=== PATIENT | female | born 1960 | race Caucasian/White ===

== ENCOUNTER 2024-06-13 17:22 | Inpatient (IN) | payer MEDICARE, BC ==
[~2024-06-13] VITALS: Ht 167.6 cm; Wt 97.2 kg
[2024-06-13 18:14] LABS: MONOCYTES # (AUTO) 0.6 X10'3 (0-0.9); PLATELET COUNT 292 X10'3 (140-440)
[2024-06-13 18:16] LABS: BASOPHILS # (AUTO) 0.1 X10'3 (0-0.2); BASOPHILS % (AUTO) 0.9 % (0-1); EOSINOPHILS # (AUTO) 0.1 X10'3 (0-0.9); EOSINOPHILS % (AUTO) 0.5 % (0-6); HEMATOCRIT 38.6 % (35.0-45.0); HEMOGLOBIN 12.6 g/dl (12.0-16.0); LYMPHOCYTES # (AUTO) 1.9 X10'3 (1.1-4.8); LYMPHOCYTES % (AUTO) 17.1 % (21-51); MEAN CORPUSCULAR HEMOGLOBIN 28.2 PG (27.0-31.0); MEAN CORPUSCULAR HGB CONC 32.5 g/dL (33.0-36.5); MEAN CORPUSCULAR VOLUME 86.8 FL (78-98); MEAN PLATELET VOLUME 8.9 FL (7.4-10.4); MONOCYTES % (AUTO) 5.4 % (2-12); NEUTROPHILS # (AUTO) 8.7 X10'3 (1.8-7.7); NEUTROPHILS % (AUTO) 76.1 % (42-75); RED BLOOD COUNT 4.45 X10'6 (4.20-5.60); RED CELL DISTRIBUTION WIDTH 17.4 % (11.5-14.5); WHITE BLOOD COUNT 11.4 X10'3 (4.5-11.0)
[2024-06-13 18:36] LABS: GLUCOSE 100 MG/DL (70-104)
[2024-06-13 18:37] LABS: ALBUMIN 2.6 G/DL (3.4-5.0); ANION GAP 9 (8-16); BLOOD UREA NITROGEN 10 MG/DL (7-18); BUN/CREATININE RATIO 10.9 (10.0-20.0); CALCIUM 8.9 MG/DL (8.5-10.1); CHLORIDE 106 MMOL/L (99-107); CREATININE 0.92 MG/DL (0.40-0.90); POTASSIUM 3.5 MMOL/L (3.5-5.1); PRO BRAIN NATRIURETIC PEPTIDE 11100 PG/ML (0-125); SODIUM 146 MMOL/L (135-145); TOTAL CARBON DIOXIDE 31.1 MMOL/L (24-32); eCRCL 56 ML/MIN; eGFR 61 ML/MIN
[2024-06-13 19:35] LABS: D-DIMER 3.51 MG/L FEU (0-0.50)
[2024-06-13] MEDS: furosemide 10 MG/1 ML 10ml inj IV ONE (20:04)
[2024-06-13] MEDS ORDERED: mag hydrox/Alum hydrox/simeth 30ml oral suspension PO PRN (20:15)
[2024-06-13] MEDS ORDERED: ondansetron/PF 4mg/2ml inj IV PRN (20:15)
[2024-06-13] MEDS ORDERED: magnesium sulf-water 4G/100mL 100 ML IV PRN (20:15)
[2024-06-13] MEDS ORDERED: magnesium sulf-water 2g/50mL 50 ML IV PRN (20:15)
[2024-06-13] MEDS ORDERED: acetaminophen 325mg tablet PO PRN ×2 (20:15)
[2024-06-13] MEDS ORDERED: magnesium Cl slow-release 64mg tablet PO PRN (20:15)
[2024-06-13] MEDS ORDERED: potassium Cl 40MEQ/1/2NS 520ml 520 ML IV PRN (20:15)
[2024-06-13] MEDS ORDERED: PERFLUTREN PROTEIN-A MICROSPHR (Optison) 0.22 MG/ML 3ML VIAL IV ONE (20:15)
[2024-06-13] MEDS: furosemide 10 MG/1 ML 10ml inj IV SCH (20:35)
[2024-06-13] MEDS ORDERED: PERFLUTREN PROTEIN-A MICROSPHR (Optison) 0.22 MG/ML 3ML VIAL IV PRN (20:36)
[2024-06-13 20:54] LABS: HEMOGLOBIN A1C 5.9 % (4.5-6.2)
[2024-06-13 20:56] LABS: APTT 23 SECONDS (22-32); INR 1.2 INR; PROTHROMBIN TIME 12.4 SECONDS (9.0-12.0)
[2024-06-13] MEDS ORDERED: iohexol 350MG/ML 100ml bottle IV ONE (20:57)
--- NOTE | 2024-06-13 21:51 | NUR ---
VERBAL ORDER GIVEN BY DR. RAWLS TO NON-ADMIN 06/13 2035 DOSE OF IV LASIX PATIENT HAS ALREADY RECEIVED 120MG THROUGHOUT CARE AT OUTSIDE FACILITY AND BY THIS FACILITY'S ED MD PRIOR TO ADMISSION.
[2024-06-13] MEDS ORDERED: enoxaparin 40mg/0.4ml syringe SUBCUT SCH (22:22)
--- NOTE | 2024-06-13 22:37 | NUR ---
REPORT ATTEMPTED X1, NURSE UNAVAILABLE. THIS RN WILL ATTEMPT AT A LATER TIME.
[2024-06-13 23:15] VITALS: BP 122/81; PULSE 105; RESP 20; TEMP 98; O2SAT 96
[2024-06-14] VITALS (8 sets, daily range): BP systolic 89–116; BP diastolic 50–74; PULSE 78–98; RESP 14–22; TEMP 97.3–98.7; O2SAT 92–98
[2024-06-14 06:20] LABS: BASOPHILS # (AUTO) 0.1 X10'3 (0-0.2); BASOPHILS % (AUTO) 0.5 % (0-1); EOSINOPHILS # (AUTO) 0.1 X10'3 (0-0.9); EOSINOPHILS % (AUTO) 0.9 % (0-6); HEMATOCRIT 35.9 % (35.0-45.0); HEMOGLOBIN 11.7 g/dl (12.0-16.0); LYMPHOCYTES # (AUTO) 1.8 X10'3 (1.1-4.8); LYMPHOCYTES % (AUTO) 15.4 % (21-51); MEAN CORPUSCULAR HEMOGLOBIN 28.3 PG (27.0-31.0); MEAN CORPUSCULAR HGB CONC 32.6 g/dL (33.0-36.5); MEAN CORPUSCULAR VOLUME 86.9 FL (78-98); MEAN PLATELET VOLUME 9.1 FL (7.4-10.4); MONOCYTES # (AUTO) 0.7 X10'3 (0-0.9); MONOCYTES % (AUTO) 5.7 % (2-12); NEUTROPHILS % (AUTO) 77.5 % (42-75); PLATELET COUNT 265 X10'3 (140-440); RED BLOOD COUNT 4.13 X10'6 (4.20-5.60); RED CELL DISTRIBUTION WIDTH 17.2 % (11.5-14.5); WHITE BLOOD COUNT 11.6 X10'3 (4.5-11.0)
--- NOTE | 2024-06-14 06:30 | NUR ---
Patient in room PCU 3019. I have received report from Yojana DOE and had the opportunity to ask questions and assume patient care.
[2024-06-14 06:32] LABS: PROTHROMBIN TIME 60.2 SECONDS (9.0-12.0)
--- NOTE | 2024-06-14 06:37 | NUR ---
Problems reprioritized. Patient report given, questions answered & plan of care reviewed with Jameel DOE.
[2024-06-14 06:54] LABS: ALANINE AMINOTRANSFERASE 14 U/L (12-78); ALBUMIN 2.4 G/DL (3.4-5.0); ALBUMIN/GLOBULIN RATIO 0.6 (1.1-1.5); ALKALINE PHOSPHATASE 73 IU/L (46-116); ANION GAP 13 (8-16); ASPARTATE AMINO TRANSFERASE 16 U/L (10-37); BILIRUBIN,TOTAL 0.9 MG/DL (0.1-1.0); BLOOD UREA NITROGEN 8 MG/DL (7-18); BUN/CREATININE RATIO 10.1 (10.0-20.0); CALCIUM 8.6 MG/DL (8.5-10.1); CHLORIDE 108 MMOL/L (99-107); CHOLESTEROL 112 MG/DL (0-200); CREATININE 0.79 MG/DL (0.40-0.90); GLUCOSE 86 MG/DL (70-104); HDL CHOLESTEROL 37 MG/DL (35-60); LDL CHOLESTEROL 57 MG/DL (50-100); MAGNESIUM 1.7 MG/DL (1.5-2.4); SODIUM 148 MMOL/L (135-145); TOTAL CARBON DIOXIDE 27.5 MMOL/L (24-32); TOTAL PROTEIN 6.3 G/DL (6.4-8.2); TRIGLYCERIDES 69 MG/DL (20-135); eCRCL 66 ML/MIN; eGFR 73 ML/MIN
[2024-06-14 06:59] LABS: INR 6.4 INR
[2024-06-14 07:00] LABS: POTASSIUM 2.9 MMOL/L (3.5-5.1)
--- NOTE | 2024-06-14 07:17 | NUR ---
PAGER ID: [phone] MESSAGE: [id number]- Shah- Critical lab values of K- 2.9, INR- 6.4 Thanks- Gissel Robles ex. [phone]
[2024-06-14] MEDS: K and/or MAG REPLACEMENT MC SCH (08:00)
[2024-06-14] MEDS: docusate sod 100mg capsule PO SCH (08:42)
[2024-06-14] MEDS: lisinopril 2.5mg tablet PO SCH (08:42)
[2024-06-14] MEDS: potassium Cl 20 mEq SR tablet PO PRN (08:51)
--- NOTE | 2024-06-14 13:46 | NUR ---
PRESSURE ULCER EDUCATION: DEFINITION: A pressure ulcer is an area of skin that breaks down when you stay in one position too long. The constant pressure against the skin reduces the blood flow to that area and the affected tissue dies. CAUSES: "Being bedridden or in a wheelchair "Fragile skin "Having a chronic condition, such as diabetes or vascular disease "Inability to move certain parts of your body without assistance "Older age "Incontinence of urine or stool SYMPTOMS: "A reddened area that DOES NOT turn white when pressed on - this can be the beginning of a pressure ulcer "A blister, deep sore or a crater - these can be advanced pressure ulcers FIRST AID: "Relieve the pressure on this area "Keep the area clean and dry "Call your primary doctor if you see any of the above symptoms "DO NOT massage the area "DO NOT use a donut shaped or ring shaped pillow- these actually interfere with the blood flow and cause complications PREVENTION: "Check for pressure ulcers everyday "Change position at least every two hours to relieve pressure "Use items that help relieve pressure- pillows, sheepskin, foam padding, and powders. "Keep skin clean and dry "Eat healthy well balanced meals "Exercise daily IF YOU SEE ANY OF THESE SYMPTOMS WHILE IN THE HOSPITAL - TELL YOUR NURSE IMMEDIATELY. IF YOU SEE ANY OF THESE SYMPTOMS WHILE AT HOME OR HAVE ANY QUESTIONS OR CONCERNS ABOUT PRESSURE ULCERS - CALL YOUR PRIMARY DOCTOR IMMEDIATELY. Addendum: 06/14/24 at 1347 by Rebecca Valodvinos LVN Amended: Links added.
[2024-06-14 14:47] LABS: INR 1.2 INR
--- NOTE | 2024-06-14 14:53 | NUR ---
Malnutrition consult: Per RN pt reports 2-13 pound wt loss and decreased PO intake/appetite. Per H&P pt has had watery diarrhea for two weeks and reports a loss of appetite. Wt this admit of 105kg (231 pounds) is ~177% of IBW. Pt seen at bedside reports UBW of ~256-265 and last weigh that amount about 6 months ago though was not sure. Pt appeared a bit hesitant/unsure when asked wt loss questions thus unsure if pt is a good historian.Pt appeared nourished with no visible signs of muscle/fat loss related to malnutrition. Pt states her appetite has not been great for the past few weeks though couldn't state about how long. Encourage protein intake during visit and provided Ensure coupons. Currently pending RN physical assessment. Based on information obtained from pt and limited information in EMR, RD unable to find two malnutrition criteria at this time. Will continue to monitor for signs and symptoms of malnutrition. Addendum: 06/14/24 at [address] Amended: Links added.
--- NOTE | 2024-06-14 15:02 | NUR ---
REVIEWED AND AGREE WITH SAVITA ZARATE'S ASSESSMENT
--- NOTE | 2024-06-14 15:56 | NUR ---
PAGER ID: [phone] MESSAGE: [id number]- Pablo- Just wanted to let you know pts INR came back as 1.2 this afternoon. Thanks- Gissel Robles ex-[phone]
[2024-06-14] MEDS ORDERED: nitroGLYCERIN 0.4mg SUBLingual tab SL PRN (16:25)
[2024-06-14] MEDS ORDERED: aminophylline 250mg/10ml inj. IV PRN (16:25)
[2024-06-14] MEDS ORDERED: metoprolol tartrate 1mg/ml inj IV PRN (16:25)
--- NOTE | 2024-06-14 18:16 | NUR ---
Problems reprioritized. Patient report given, questions answered & plan of care reviewed with Mary ZARATE.
[2024-06-14] MEDS: sacubitril/valsartan 24mg-26mg tablet PO SCH (20:00)
[2024-06-14] MEDS: carVEDilol 3.125mg tablet PO SCH (20:22)
[2024-06-14] MEDS: nystatin 15 GM powder TP SCH (20:22)
[2024-06-14] MEDS: enoxaparin 40mg/0.4ml syringe SUBCUT SCH (23:30)
[2024-06-15] VITALS (17 sets, daily range): BP systolic 91–112; BP diastolic 57–72; PULSE 86–95; RESP 16–24; TEMP 97.2–98.3; O2SAT 91–99
[2024-06-15 06:10] LABS: BASOPHILS # (AUTO) 0.1 X10'3 (0-0.2); BASOPHILS % (AUTO) 0.7 % (0-1); EOSINOPHILS # (AUTO) 0.2 X10'3 (0-0.9); HEMATOCRIT 37.5 % (35.0-45.0); HEMOGLOBIN 11.9 g/dl (12.0-16.0); LYMPHOCYTES # (AUTO) 1.4 X10'3 (1.1-4.8); LYMPHOCYTES % (AUTO) 14.4 % (21-51); MEAN CORPUSCULAR HEMOGLOBIN 27.9 PG (27.0-31.0); MEAN CORPUSCULAR HGB CONC 31.9 g/dL (33.0-36.5); MEAN CORPUSCULAR VOLUME 87.6 FL (78-98); MEAN PLATELET VOLUME 9.3 FL (7.4-10.4); MONOCYTES # (AUTO) 0.5 X10'3 (0-0.9); MONOCYTES % (AUTO) 5.5 % (2-12); NEUTROPHILS # (AUTO) 7.7 X10'3 (1.8-7.7); NEUTROPHILS % (AUTO) 77.4 % (42-75); PLATELET COUNT 264 X10'3 (140-440); RED BLOOD COUNT 4.28 X10'6 (4.20-5.60)
[2024-06-15 06:17] LABS: INR 1.2 INR; PROTHROMBIN TIME 12.3 SECONDS (9.0-12.0)
[2024-06-15 06:23] LABS: ALBUMIN 2.3 G/DL (3.4-5.0); ANION GAP 7 (8-16); BLOOD UREA NITROGEN 12 MG/DL (7-18); BUN/CREATININE RATIO 13.5 (10.0-20.0); CALCIUM 8.5 MG/DL (8.5-10.1); CHLORIDE 106 MMOL/L (99-107); CREATININE 0.89 MG/DL (0.40-0.90); GLUCOSE 94 MG/DL (70-104); MAGNESIUM 1.8 MG/DL (1.5-2.4); POTASSIUM 3.9 MMOL/L (3.5-5.1); SODIUM 145 MMOL/L (135-145); TOTAL CARBON DIOXIDE 32.1 MMOL/L (24-32); eCRCL 58 ML/MIN; eGFR 63 ML/MIN
--- NOTE | 2024-06-15 06:28 | NUR ---
Problems reprioritized. Patient report given, questions answered & plan of care reviewed with Gissel ZARATE.
--- NOTE | 2024-06-15 06:48 | NUR ---
Patient in room PCU 3019. I have received report from Mary ZARATE and had the opportunity to ask questions and assume patient care.
[2024-06-15] MEDS: regadenoson 0.4mg/5ml syringe IV PRN (10:20)
--- NOTE | 2024-06-15 11:00 | NUR ---
FLUE CLEANER documentation: I have reviewed and agree with all interventions, assessments performed and documented by Gissel ZARATE; care plan reviewed/discussed/updated as needed.
--- NOTE | 2024-06-15 11:40 | NUR ---
Pt discharged via wheelchair to private vehicle with significant other. All belongings and discharge paperwork sent with pt. IV removed whole and intact. Tele monitor removed and returned to television production clerk Addendum: 06/15/24 at 1154 by Gissel Oakes LVN Wrong Patient, pt was not discharged.
[2024-06-15] MEDS: DAPAGLIFLOZIN 10MG TABLET PO SCH (13:32)
--- NOTE | 2024-06-15 18:26 | NUR ---
Problems reprioritized. Patient report given, questions answered & plan of care reviewed with Mary ZARATE.
[2024-06-16] VITALS (9 sets, daily range): BP systolic 95–116; BP diastolic 47–78; PULSE 90–99; RESP 13–22; TEMP 96.4–98.2; O2SAT 92–98
--- NOTE | 2024-06-16 00:30 | NUR ---
I AGREE WITH ASSESSMENTS AND CARE GIVEN BY CODEY ZARATE
[2024-06-16 06:10] LABS: BASOPHILS # (AUTO) 0.1 X10'3 (0-0.2); BASOPHILS % (AUTO) 0.8 % (0-1); EOSINOPHILS # (AUTO) 0.3 X10'3 (0-0.9); EOSINOPHILS % (AUTO) 2.8 % (0-6); HEMATOCRIT 38.8 % (35.0-45.0); HEMOGLOBIN 12.8 g/dl (12.0-16.0); LYMPHOCYTES # (AUTO) 1.4 X10'3 (1.1-4.8); LYMPHOCYTES % (AUTO) 14.2 % (21-51); MEAN CORPUSCULAR HEMOGLOBIN 28.8 PG (27.0-31.0); MEAN CORPUSCULAR HGB CONC 32.9 g/dL (33.0-36.5); MEAN CORPUSCULAR VOLUME 87.4 FL (78-98); MEAN PLATELET VOLUME 9.7 FL (7.4-10.4); MONOCYTES # (AUTO) 0.7 X10'3 (0-0.9); MONOCYTES % (AUTO) 7.4 % (2-12); NEUTROPHILS # (AUTO) 7.1 X10'3 (1.8-7.7); NEUTROPHILS % (AUTO) 74.8 % (42-75); PLATELET COUNT 244 X10'3 (140-440); RED BLOOD COUNT 4.44 X10'6 (4.20-5.60); RED CELL DISTRIBUTION WIDTH 18.4 % (11.5-14.5); WHITE BLOOD COUNT 9.5 X10'3 (4.5-11.0)
[2024-06-16 06:12] LABS: INR 1.1 INR; PROTHROMBIN TIME 11.8 SECONDS (9.0-12.0)
[2024-06-16 06:32] LABS: ANION GAP 13 (8-16); BLOOD UREA NITROGEN 13 MG/DL (7-18); BUN/CREATININE RATIO 19.4 (10.0-20.0); CALCIUM 8.5 MG/DL (8.5-10.1); CHLORIDE 105 MMOL/L (99-107); CREATININE 0.67 MG/DL (0.40-0.90); GLUCOSE 86 MG/DL (70-104); MAGNESIUM 1.9 MG/DL (1.5-2.4); POTASSIUM 3.3 MMOL/L (3.5-5.1); SODIUM 147 MMOL/L (135-145); TOTAL CARBON DIOXIDE 28.7 MMOL/L (24-32); eCRCL 77 ML/MIN; eGFR 88 ML/MIN
--- NOTE | 2024-06-16 06:35 | NUR ---
Patient in room PCU 3019. I have received report from Mary ZARATE and had the opportunity to ask questions and assume patient care.
[2024-06-16 06:44] LABS: ALBUMIN 2.4 G/DL (3.4-5.0)
[2024-06-16] MEDS: potassium Cl 20 mEq SR tablet PO PRN (07:58)
--- NOTE | 2024-06-16 09:07 | NUR ---
Problems reprioritized. Patient report given, questions answered & plan of care reviewed with Kristy DOE.
--- NOTE | 2024-06-16 09:10 | NUR ---
Patient in room PCU 3019. I have received report from BROOK Cali and had the opportunity to ask questions and assume patient care.
[2024-06-16] MEDS ORDERED: ASPI1POW35 (10:03)
[2024-06-16] MEDS ORDERED: MULT-1085 PO (10:04)
--- NOTE | 2024-06-16 18:02 | NUR ---
Patient last BM 06/13. Offered patient bowel care to help with BM. Pt declined stating she doesn't like to take medications. She states she hasn't eaten a good meal in several days and she thinks she will have BM tomorrow. Prune Juice offered.
[2024-06-16] MEDS: magnesium hydroxide 30ml (MOM) UD suspension PO PRN (18:08)
--- NOTE | 2024-06-16 18:20 | NUR ---
Problems reprioritized. Patient report given to David Hernandez, questions answered & plan of care reviewed with David Hernandez.
[2024-06-16] MEDS: furosemide 40mg/4ml inj IV SCH (20:00)
[2024-06-16] MEDS: carvedilol 6.25mg tablet PO SCH (20:00)
--- NOTE | 2024-06-16 22:49 | NUR ---
ELLIOT documentation: I have reviewed and agree the assessments documented by Lei Jose LVN
[2024-06-17] VITALS (9 sets, daily range): BP systolic 83–114; BP diastolic 48–70; PULSE 84–110; RESP 13–25; TEMP 96.7–98.2; O2SAT 92–98
--- NOTE | 2024-06-17 06:37 | NUR ---
Patient in room PCU 3019. I have received report from Mary ZARATE and had the opportunity to ask questions and assume patient care.
[2024-06-17 07:02] LABS: BASOPHILS # (AUTO) 0.1 X10'3 (0-0.2); BASOPHILS % (AUTO) 0.8 % (0-1); EOSINOPHILS # (AUTO) 0.2 X10'3 (0-0.9); EOSINOPHILS % (AUTO) 2.7 % (0-6); HEMATOCRIT 38.3 % (35.0-45.0); HEMOGLOBIN 12.2 g/dl (12.0-16.0); LYMPHOCYTES # (AUTO) 1.3 X10'3 (1.1-4.8); MEAN CORPUSCULAR HEMOGLOBIN 27.9 PG (27.0-31.0); MEAN CORPUSCULAR HGB CONC 31.8 g/dL (33.0-36.5); MEAN CORPUSCULAR VOLUME 87.8 FL (78-98); MEAN PLATELET VOLUME 9.4 FL (7.4-10.4); MONOCYTES # (AUTO) 0.6 X10'3 (0-0.9); MONOCYTES % (AUTO) 7.3 % (2-12); NEUTROPHILS % (AUTO) 73.2 % (42-75); PLATELET COUNT 241 X10'3 (140-440); RED BLOOD COUNT 4.36 X10'6 (4.20-5.60); RED CELL DISTRIBUTION WIDTH 18.1 % (11.5-14.5); WHITE BLOOD COUNT 8.2 X10'3 (4.5-11.0)
[2024-06-17 07:11] LABS: INR 1.1 INR; PROTHROMBIN TIME 11.3 SECONDS (9.0-12.0)
[2024-06-17 07:13] LABS: ALBUMIN 2.3 G/DL (3.4-5.0); ANION GAP 7 (8-16); BLOOD UREA NITROGEN 13 MG/DL (7-18); BUN/CREATININE RATIO 17.8 (10.0-20.0); CALCIUM 8.7 MG/DL (8.5-10.1); CHLORIDE 107 MMOL/L (99-107); CREATININE 0.73 MG/DL (0.40-0.90); GLUCOSE 80 MG/DL (70-104); MAGNESIUM 1.9 MG/DL (1.5-2.4); POTASSIUM 3.3 MMOL/L (3.5-5.1); SODIUM 145 MMOL/L (135-145); TOTAL CARBON DIOXIDE 31.2 MMOL/L (24-32); eCRCL 71 ML/MIN; eGFR 80 ML/MIN
[2024-06-17] MEDS ORDERED: potassium Cl 40MEQ/1/2NS 520ml 520 ML IV PRN (08:30)
[2024-06-17] MEDS ORDERED: magnesium Cl slow-release 64mg tablet PO PRN (08:30)
[2024-06-17] MEDS ORDERED: potassium Cl 20 mEq SR tablet PO PRN (08:30)
[2024-06-17] MEDS ORDERED: magnesium sulf-water 2g/50mL 50 ML IV PRN (08:30)
[2024-06-17] MEDS ORDERED: magnesium sulf-water 4G/100mL 100 ML IV PRN (08:30)
[2024-06-17] MEDS: potassium Cl 20 mEq SR tablet PO PRN (08:47)
[2024-06-17] MEDS: normal saline 500ml IV soln 500 ML IV ONE (11:10)
--- NOTE | 2024-06-17 16:19 | NUR ---
I agree with ENVIRONMENTAL SERVICES MANAGER's assessment.
--- NOTE | 2024-06-17 18:36 | NUR ---
Problems reprioritized. Patient report given, questions answered & plan of care reviewed with GRAZYNA ZARATE.
[2024-06-17] MEDS: carVEDilol 3.125mg tablet PO SCH (19:30)
--- NOTE | 2024-06-17 20:05 | NUR ---
Patient resting comfortably on hospital bed, has no concerns at this time.
[2024-06-17] MEDS: albumin (human) 25% 100 ML IV solution IV ONE (23:57)
[2024-06-18] VITALS (9 sets, daily range): BP systolic 80–97; BP diastolic 50–71; PULSE 74–103; RESP 15–21; TEMP 97–98.6; O2SAT 95–98
--- NOTE | 2024-06-18 00:31 | NUR ---
pt's 2200 from machine was 80/47 manual ended up being 84/50... informed ordered albumin, rn administered
--- NOTE | 2024-06-18 02:58 | NUR ---
manual bp 80/50 contacted .. told him she was asymptomatic and looked fluid overloaded, will give albumin more time... no new orders
--- NOTE | 2024-06-18 05:08 | NUR ---
ELLIOT DOCUMENTATION: I have reviewed all assessmenta and charting on this patient byLeonidas LVN and agree with his documentation.
[2024-06-18 06:18] LABS: INR 1.1 INR; PROTHROMBIN TIME 11.2 SECONDS (9.0-12.0)
--- NOTE | 2024-06-18 06:20 | NUR ---
Patient in room PCU 3019. I have received report from GRAZYNA ZARATE and had the opportunity to ask questions and assume patient care.
[2024-06-18 06:23] LABS: ALBUMIN 2.5 G/DL (3.4-5.0); ANION GAP 8 (8-16); BLOOD UREA NITROGEN 16 MG/DL (7-18); BUN/CREATININE RATIO 22.9 (10.0-20.0); CALCIUM 8.4 MG/DL (8.5-10.1); CHLORIDE 107 MMOL/L (99-107); GLUCOSE 95 MG/DL (70-104); POTASSIUM 3.6 MMOL/L (3.5-5.1); SODIUM 143 MMOL/L (135-145); TOTAL CARBON DIOXIDE 28.5 MMOL/L (24-32); eCRCL 74 ML/MIN; eGFR 84 ML/MIN
[2024-06-18 06:38] LABS: BASOPHILS # (AUTO) 0.1 X10'3 (0-0.2); BASOPHILS % (AUTO) 0.8 % (0-1); EOSINOPHILS # (AUTO) 0.2 X10'3 (0-0.9); EOSINOPHILS % (AUTO) 2.7 % (0-6); HEMATOCRIT 35.9 % (35.0-45.0); HEMOGLOBIN 11.7 g/dl (12.0-16.0); LYMPHOCYTES # (AUTO) 1.7 X10'3 (1.1-4.8); LYMPHOCYTES % (AUTO) 18.7 % (21-51); MEAN CORPUSCULAR HEMOGLOBIN 28.2 PG (27.0-31.0); MEAN CORPUSCULAR HGB CONC 32.5 g/dL (33.0-36.5); MEAN CORPUSCULAR VOLUME 86.7 FL (78-98); MEAN PLATELET VOLUME 9.4 FL (7.4-10.4); MONOCYTES # (AUTO) 0.6 X10'3 (0-0.9); MONOCYTES % (AUTO) 7.1 % (2-12); NEUTROPHILS # (AUTO) 6.3 X10'3 (1.8-7.7); NEUTROPHILS % (AUTO) 70.7 % (42-75); PLATELET COUNT 228 X10'3 (140-440); RED BLOOD COUNT 4.15 X10'6 (4.20-5.60); RED CELL DISTRIBUTION WIDTH 17.6 % (11.5-14.5); WHITE BLOOD COUNT 8.9 X10'3 (4.5-11.0)
[2024-06-18] MEDS ORDERED: lisinopril 5mg tablet PO SCH (08:00)
[2024-06-18] MEDS: lisinopril 2.5mg tablet PO SCH (08:00)
[2024-06-18] MEDS: furosemide 40mg/4ml inj IV SCH (08:00)
--- NOTE | 2024-06-18 12:36 | NUR ---
Reviewed and agree with Kim ZARATE's assessment
--- NOTE | 2024-06-18 18:54 | NUR ---
Problems reprioritized. Patient report given, questions answered & plan of care reviewed with GRAZYNA ZARATE.
--- NOTE | 2024-06-18 21:45 | NUR ---
ELLIOT documentation: I have reviewed and agree with the assessments documented by Rayshawn Vick LVN.
[2024-06-19] VITALS (8 sets, daily range): BP systolic 83–104; BP diastolic 45–71; PULSE 83–97; RESP 16–23; TEMP 97–98.7; O2SAT 94–99
--- NOTE | 2024-06-19 06:20 | NUR ---
Patient in room PCU 3019. I have received report from GRAZYNA ZARATE and had the opportunity to ask questions and assume patient care.
[2024-06-19 07:31] LABS: ALBUMIN 2.5 G/DL (3.4-5.0); ANION GAP 4 (8-16); BLOOD UREA NITROGEN 17 MG/DL (7-18); BUN/CREATININE RATIO 19.1 (10.0-20.0); CALCIUM 8.8 MG/DL (8.5-10.1); CHLORIDE 109 MMOL/L (99-107); CREATININE 0.89 MG/DL (0.40-0.90); GLUCOSE 92 MG/DL (70-104); POTASSIUM 4.3 MMOL/L (3.5-5.1); SODIUM 144 MMOL/L (135-145); TOTAL CARBON DIOXIDE 30.7 MMOL/L (24-32); eCRCL 58 ML/MIN; eGFR 63 ML/MIN
[2024-06-19] MEDS: furosemide 20 MG/2 ML vial IV SCH (08:48)
--- NOTE | 2024-06-19 10:58 | NUR ---
Reviewed and agree with Kim ZARATE's assessment
--- NOTE | 2024-06-19 11:19 | NUR ---
Initial: Pt presents with acute HFrEF, severe mitral valve regurgitation, elevated troponin, mild hypernatremia, hypokalemia, softness of breath, and acute diarrhea per EMR. Pt continues on a heart healthy diet with average PO intake of ~88% x 13 meals which met 100% of estimated kcal and protein needs. LBM on 06/18 per EMR. Will continue to monitor and make recommendations as appropriate. Recommendations: 1.Continue heart healthy diet 2.Monitor PO intake and need for ONS 3.Utilize PRN bowel care as needed 4.Weekly scaled wts Addendum: 06/19/24 at [address] Amended: Links added.
--- NOTE | 2024-06-19 18:18 | NUR ---
Problems reprioritized. Patient report given, questions answered & plan of care reviewed with GRAZYNA ZARATE.
--- NOTE | 2024-06-20 02:05 | NUR ---
Reviewed Leonidas ZARATE's charting of pt physical assessment and agree with what has been charted.
[2024-06-20 02:16] VITALS: BP 104/61; PULSE 90; RESP 16; TEMP 97.5; O2SAT 95
--- NOTE | 2024-06-20 06:44 | NUR ---
Patient in room PCU 3019. I have received report from Leonidas ZARATE and had the opportunity to ask questions and assume patient care.
[2024-06-20 07:00] VITALS: BP 101/57; PULSE 91; RESP 21; TEMP 98; O2SAT 93
[2024-06-20 08:00] VITALS: RESP 18; O2SAT 96
[2024-06-20 11:00] VITALS: BP 100/64; PULSE 88; RESP 18; TEMP 98.4; O2SAT 96
--- NOTE | 2024-06-20 11:25 | NUR ---
Reviewed and agree with Gissel ZARATE's assessment
--- NOTE | 2024-06-20 12:57 | NUR ---
Problems reprioritized. Patient report given, questions answered & plan of care reviewed with Niko at [facility].
--- NOTE | 2024-06-20 13:59 | NUR ---
Pt transferred to [facility] Via wheelchair and [employer] with [employer] personnel. All belongings and transfer paperwork sent with pt. IV removed whole and intact. Tele Monitor removed and returned to telephone clerk telegraph office.
== END 2024-06-20 13:54 | DRG 280 ==
LOC: ER 17:23 → ED HOLD 20:46 → PCU 3S 23:14
PROVIDERS: ADMIT Surgery; ATTEND Family Medicine
PROC: B32T1ZZ Computerized Tomography (CT Scan) of Left Pulmonary Artery using Low Osmolar Contrast (ICD-10-PCS; principal; 2024-06-13)
PROC: B3201ZZ Computerized Tomography (CT Scan) of Thoracic Aorta using Low Osmolar Contrast (ICD-10-PCS; 2024-06-13)
PROC: B32S1ZZ Computerized Tomography (CT Scan) of Right Pulmonary Artery using Low Osmolar Contrast (ICD-10-PCS; 2024-06-13)
PROC: 4A02XM4 Measurement of Cardiac Total Activity, External Approach (ICD-10-PCS; 2024-06-15)
PROC: 3E033HZ Introduction of Radioactive Substance into Peripheral Vein, Percutaneous Approach (ICD-10-PCS; 2024-06-15)
DX: I11.0 Hypertensive heart disease with heart failure (principal); I50.21 Acute systolic (congestive) heart failure; I21.A1 Myocardial infarction type 2; J96.01 Acute respiratory failure with hypoxia; L03.116 Cellulitis of left lower limb; E87.0 Hyperosmolality and hypernatremia; I42.0 Dilated cardiomyopathy; I87.8 Other specified disorders of veins; R19.7 Diarrhea, unspecified; E87.6 Hypokalemia
CPT/HCPCS: 36415; 71045; 71275; 78452; 80048; 80053; 80061; 83036; 83605; 83735; 83880; 84132; 84145; 84484; 85025; 85379; 85610; 85730; 87040; 87081; 93005; 93017; 93306; 93971; 96374; 97116; 97161; 99285; A6213; A6258; A6449; A9500; G0378; J1650; J1940; J2785; J7040; P9047; Q9967